=== PATIENT | female | born 1945 | race Caucasian/White ===

== ENCOUNTER → 2019-05-06 | Outpatient (CLI) | payer MEDICARE, OTHER ==
[2019-05-06 10:38] VITALS: BP 130/85; PULSE 66; RESP 20; TEMP 98.2; BMI 37.0
--- NOTE | 2019-05-06 10:55 | P.GSHP ---
History of Present Illness H&P Date: 05/06/19 Chief Complaint: right breast cancer 1989, [place], [place] The patient is a 74-year-old white female who comes for breast evaluation. Of significance is the fact that at the age of 45 on a free screening mammogram she was noted to have an area of concern in the right breast. This was found to be positive for breast cancer. She was treated with a lumpectomy and radiation therapy. She states that the three quarters of the lymph nodes removed from under her arm. These were all negative for cancer. She subsequently underwent a left breast reduction and revision of the scar in the right breast. She did not have any chemotherapy or hormonal therapy. She had recent mammogram on 04-25-19 which was felt to be benign BIRADS 2. Distortion and dystrophic calcifications were noted in the right breast. 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 No suspicious new masses or worrisome clusters of microcalcifications were demonstrated. The patient had a CT of the chest on 04-19-19 which showed a 2 cm calcified dystrophic mass within the right breast for which clinical correlation was recommended. Vascular calcifications within the aorta and coronary vessels were noted. No evidence for pulmonary embolism. Family History: 1. maternal aunt: breast cancer 2. mother: ovarian 3. paternal grandmother: colon cancer Hormonal History: menarche: 12 2 miscarriages, breast fed: yes, first at 23 menopause: 45 BCP: yes, 3 years hormones: none now used to use estrace cream (3 months) Past surgical history: 1. Breast lumpectomy and axillary node dissection 2. appy 3. bilateral oophrectomy 4. right shoulder surgery 5. bilateral knee 6. D&C Past Medical History: 1. HTN 2. asthma 3. osteo-arthritis 4. vertigo 5. GERD Social History: smoke: social 50 years ago alcohol: occasional glass of wine drugs: none - Constitutional Comment: vertigo treatment at this time Constitutional: Denies chills, Denies fever - EENT Comment: wears glasses Eyes: bilateral blurred vision, denies pain Ears: bilateral: decreased hearing, tinnitus Ears, nose, mouth and throat: Denies headache, Denies sore throat - Breasts Breasts: bilateral: as per HPI - Cardiovascular Cardiovascular: Reports high blood pressure - Respiratory Comment: asthma - Gastrointestinal Gastrointestinal: Denies abdominal pain, Denies diarrhea, Denies nausea, Denies vomiting - Genitourinary (Female) Comment: UTI Genitourinary: Denies dysuria, Denies hematuria - Menstruation Comment: oophrectomy Menstruation: Reports postmenopausal - Musculoskeletal Comment: osteo arthritis - Integumentary Integumentary: Denies pruritus, Denies rash - Neurological Neurological: Denies numbness, Denies weakness - Psychiatric Psychiatric: Denies anxiety, Denies depression - Endocrine Endocrine: Denies fatigue, Denies weight change - Hematologic/Lymphatic Comment: baby aspirin - Allergic/Immunologic Allergic/Immunologic: Reports as per HPI, Reports seasonal allergies Medications and Allergies Allergies Allergy/AdvReac Type Severity Reaction Status Date / Time No Known Allergies Allergy Unverified 05/06/19 10:25 Surgical - Exam BMI 37 - General obese - Eyes normal ocular movement - ENT no hearing loss, no congestion - Neck trachea midline - Respiratory normal respiratory effort, clear to auscultation - Cardiovascular Rhythm: regular Heart Sounds: normal: S1, S2 - Abdomen Abdomen: soft, non tender, no guarding, no rigid, no rebound - Integumentary normal turgor - Neurologic no disoriented, no combative - Musculoskeletal normal gait, normal posture - Psychiatric oriented to time, oriented to person, oriented to place, speech is normal, memory intact breast exam: right breast: Multi-positional examination, dense reaction. The lumpectomy scar site, this is not changed as per the patient, no other masses or nodules of concern, but breast is smaller than the left breast Right axilla: No adenopathy of concern Left breast: Multi-positional exam fibrocystic breast changes no dominant masses or nodules of concern, well-healed scars from prior reduction mammoplasty Left axilla: No adenopathy of concern Results Mammogram reviewed, dystrophic calcifications noted Assessment and Plan Assessment: Impression: 1. HTN 2. asthma 3. osteo-arthritis 4. vertigo 5. GERD 6. status post right breast lumpectomy and radiation therapy 1989, suspected early stage breast cancer 7. No evidence of any recurrent breast cancer Plan: 1. Repeat bilateral mammogram physician exam in 1 year 2. Medical management of medical conditions Cc: Dr. Shine
== END | disposition home or self-care (01) ==
LOC: WWCWWP 09:31
PROVIDERS: ATTEND Surgery
DX: Z53.9 Procedure and treatment not carried out, unspecified reason (principal)